=== PATIENT | female | born 2000 | race Caucasian/White ===

== ENCOUNTER 2019-11-06 21:44 | Emergency (ER) | payer OTHER ==
[~2019-11-06] VITALS: Ht 154.9 cm; Wt 79.9 kg
--- NOTE | 2019-11-06 22:32 | NUR ---
PT RESTING. MONITOR IN PLACE. NO APPARENT DISTRESS. PT FEELING ANXIOUS D/T CHEST PAIN.
[2019-11-06] MEDS ORDERED: ACETAMINOPHEN 325 MG TABLET PO ONE (23:00)
[2019-11-06] MEDS ORDERED: MAALOX/HYOSCYAMINE/LIDOCAINE 45 ML BTL PO ONE (23:00)
[2019-11-06 23:05] LABS: BASOPHILS # (AUTO) 0.03 x10^3/uL (0-0.1); BASOPHILS % (AUTO) 0 % (0-1); EOSINOPHILS % (AUTO) 2 % (1-7); LYMPHOCYTES % (AUTO) 14 % (22-44); MD NO; MEAN CORPUSCULAR HGB CONC 33.3 g/dL (32.4-35.8); MEAN CORPUSCULAR VOLUME 87.2 fL (80-100); MEAN PLATELET VOLUME 9.4 fL (7.4-10.4); MONOCYTES # (AUTO) 0.85 x10^3/uL (0.2-0.8); MONOCYTES % (AUTO) 7 % (2-9); NEUTROPHILS # (AUTO) 9.88 x10^3/uL (1.8-6.8); NEUTROPHILS % (AUTO) 78 % (42-75); PLATELET COUNT 279 x10^3/uL (130-400); RED BLOOD COUNT 4.36 x10^6/uL (3.82-5.3); RED CELL DISTRIBUTION WIDTH 13.5 % (9.6-15.2)
[2019-11-06 23:14] LABS: ALBUMIN 3.1 g/dL (3.4-5.0); ANION GAP 6 mmol/L (5-15); CHLORIDE 108 mmol/L (98-107); CREATININE 0.75 mg/dL (0.55-1.02)
[2019-11-06 23:17] LABS: ALANINE AMINOTRANSFERASE 23 U/L (12-78); ALKALINE PHOSPHATASE 68 U/L (45-117); BILIRUBIN,TOTAL 0.9 mg/dL (0.2-1.0); TOTAL PROTEIN 7.4 g/dL (6.4-8.2)
[2019-11-06] MEDS ORDERED: ALUMINUM/MAG/SIMETHICONE 30 ML UDC ONE (23:32)
[2019-11-06] MEDS ORDERED: ACETAMINOPHEN 500 MG TABLET ONE (23:33)
[2019-11-06] MEDS ORDERED: MAALOX/HYOSCYAMINE/LIDOCAINE 45 ML BTL ONE (23:37)
--- NOTE | 2019-11-06 23:42 | NUR ---
MEDS/MAR. PT SITTING UPRIGHT WATCHING TV. CP STILL PRESENT 03/28.
[2019-11-07 00:22] VITALS: BP 129/78
--- NOTE | 2019-11-07 00:23 | NUR ---
PT AMBULATED TO BR. CLEAN CATCH OBTAINED.
== END 2019-11-07 00:32 | disposition home or self-care (01) ==
LOC: ED 23:20
DX: R07.89 Other chest pain (principal); R05 Cough
CPT/HCPCS: 36415; 71045; 80053; 83690; 85025; 85379; 93005; 99284